=== PATIENT | male | born 1940 | race Caucasian/White ===

== ENCOUNTER → 2016-12-05 | Day surgery (SDC) | payer OTHER ==
[~2016-12-05] MED LIST: ACTOS PO; AMBIEN10 MG PO; AMBIEN12.5 MG PO; AMLODIPINE-BENA1 CA3 PO; ASPIRIN PO; CIPRO PO; FLOMAX0.4 M1 PO; HCTZ PO; HYDROCODON-ACE1 EAC5 PO; HYDROCODON-ACE1 EAC9 PO; LIPITOR PO; LIPITOR20 MG PO; LO-DOSE ASPIRIN81 M1 PO; LORTAB 10/500 T1 TAB PO; LOTREL 10-20 M1 EACH PO; LOTREL 10/20 MG1 CAP PO; MULTI-DAY VITA1 EACH PO; SUDAFED PO; TOPROL XL PO
--- NOTE | ~2016-12-05 | OR ---
Unit #: [id number] #: [id number] Patient: RANDOLPH MONTEMAYOR [id number] [address] [place], [place] [address] [id number] MR#: [id number] NAME: RANDOLPH MONTEMAYOR ROOM: Date of Procedure: 12/05/2016 Admission Date: 12/05/2016 Surgeon: Jose Manuel Siegel M.D. : 1940 Attending Physician: Jose Manuel Siegel M.D. Primary Care Physician: Mackenzie Sims M.D. OPERATIVE REPORT PRIMARY CARE PHYSICIAN Mackenzie Sims M.D. PREOPERATIVE DIAGNOSES The patient presented for surveillance colonoscopy. She has history of high-grade dysplasia and ascending colon polyp removed last year. PROCEDURES PERFORMED Colonoscopy and polypectomy. POSTOPERATIVE DIAGNOSES 1. The patient had three polyps, the first one was in cecum, second in ascending colon, third in the transverse colon. The cecal polyp was about a centimeter in size and the remaining two polyps were 5 to 6 mm each. All were removed using snare polypectomy, retrieved and sent for histology. 2. The patient had moderate sigmoid and descending colon diverticulosis. 3. Small internal hemorrhoids. 4. Rest of the examination up to cecum was normal. The quality of the prep was excellent. RECOMMENDATIONS Follow up the results of polyp histology and consider repeat examination in 5 years. SEDATION USED MAC. DESCRIPTION OF PROCEDURE Following detailed explanation of the potential risks and complications of a colonoscopy, namely perforation, bleeding, and complications related to sedation, the patient was brought to GI lab and laid in the left lateral decubitus position. A digital rectal examination was performed, which was normal. Lubricated tip of the Olympus video colonoscope was inserted through the anus and advanced under direct vision. The scope was advanced past rectosigmoid into descending colon. Multiple medium-sized diverticula were seen scattered in this area. The scope tip was then navigated all the way up to cecum with visualization of the ileocecal valve and the appendiceal orifice. Preparation was excellent with good visualization and photodocumentation obtained. Successive segments of the colonic mucosa were examined upon withdrawal. A 1 cm sessile polyp was noted in the cecum, which was removed using snare cautery polypectomy. It was retrieved and sent for histology. Excellent hemostasis was achieved. Unit #: [id number] #: [id number] Patient: RANDOLPH MONTEMAYOR Two additional small polyps were seen one each in the proximal ascending, other one in mid transverse colon. These were about 5 mm to 6 mm each, both were removed using snare polypectomy, retrieved and sent for histology. No additional polyps were noted. Other than the left-sided diverticulosis, no additional abnormalities were found. The patient did not have any hemorrhoids at anal verge. The scope was then withdrawn and the patient returned to the recovery area. She tolerated the procedure without any postprocedure complications. Dictated by... Archana Wong/johnnie TD: 12/05/2016 17:03 JOB #: [id number] OPERATIVE REPORT Page 1 of 1 X Jose Manuel Siegel MD X PROCEDURE OPERATIVE NOTE
== END | disposition home or self-care (01) ==
LOC: COPS 11:22
DX: Z12.11 Encounter for screening for malignant neoplasm of colon (principal); D12.0 Benign neoplasm of cecum; D12.2 Benign neoplasm of ascending colon; K57.30 Diverticulosis of large intestine without perforation or abscess without bleeding; K64.8 Other hemorrhoids; C67.9 Malignant neoplasm of bladder, unspecified; I10 Essential (primary) hypertension; Z79.82 Long term (current) use of aspirin; Z86.010 Personal history of colon polyps; Z79.899 Other long term (current) drug therapy; Z98.890 Other specified postprocedural states; Z88.7 Allergy status to serum and vaccine; Z90.49 Acquired absence of other specified parts of digestive tract; Z89.522 Acquired absence of left knee; Z95.1 Presence of aortocoronary bypass graft
CPT/HCPCS: 88305